=== PATIENT | female | born 2000 | race Hispanic/Latino ===

== ENCOUNTER 2024-02-14 12:33 | Emergency (ER) | payer OTHER ==
[~2024-02-14] VITALS: Ht 160 cm; Wt 52.2 kg
[2024-02-14] MEDS: ACETAMINOPHEN 325 MG TAB PO ONE (13:52)
[2024-02-14] MEDS: KETOROLAC 15MG/ML VIAL (15MG/ML) IM ONE (13:57)
[2024-02-14] MEDS ORDERED: IBUP-2076 PO (14:42)
[2024-02-14 14:50] VITALS: BP 118/72; PULSE 70; RESP 18; O2SAT 99
== END 2024-02-14 16:03 | disposition home or self-care (01) ==
LOC: EDH 12:33
DX: S92.911A Unspecified fracture of right toe(s), initial encounter for closed fracture (principal); M79.674 Pain in right toe(s); W18.09XA Striking against other object with subsequent fall, initial encounter; Y93.89 Activity, other specified; Y92.89 Other specified places as the place of occurrence of the external cause; Y99.8 Other external cause status
CPT/HCPCS: 99284; 96374; 81025; 73660; J1885